=== PATIENT | female | born 1950 | race Caucasian/White ===

== ENCOUNTER 2017-03-16 20:50 | Inpatient (IN) | payer MEDICARE, OTHER ==
[~2017-03-16] VITALS: Ht 170.2 cm; Wt 96.6 kg
[2017-03-16] MEDS ORDERED: ONDANSETRON 2MG/ML, 2ML ONE (21:55)
[2017-03-16 21:58] LABS: MICROSCOPIC AUTO
[2017-03-16 22:00] LABS: CULTURE INDICATED? YES
[2017-03-16] MEDS ORDERED: SODIUM CHLORIDE 0.9% 1,000ML IVBOLUS ONE (22:00)
[2017-03-16] MEDS ORDERED: morphine SULFATE 10 MG/ML, 1ML IVPush ONE (22:00)
[2017-03-16] MEDS ORDERED: ONDANSETRON 2MG/ML, 2ML IVPush ONE (22:00)
[2017-03-16] MEDS ORDERED: CEFTRIAXONE PMX 1GM/50ML 50 ML IV ONE (22:30)
[2017-03-16 22:40] LABS: BASOPHILS # (AUTO) 0.01 x10^3/uL (0-0.1); BASOPHILS % (AUTO) 0 % (0-1); EOSINOPHILS # (AUTO) 0.02 x10^3/uL (0-0.4); EOSINOPHILS % (AUTO) 0 % (1-7); LYMPHOCYTES # (AUTO) 0.24 x10^3/uL (1-3.4); LYMPHOCYTES % (AUTO) 2 % (22-44); MD NO; MEAN CORPUSCULAR HEMOGLOBIN 30.5 pg (27.0-34.8); MEAN CORPUSCULAR HGB CONC 33.3 g/dL (32.4-35.8); MEAN CORPUSCULAR VOLUME 91.8 fL (80-100); MEAN PLATELET VOLUME 7.5 fL (7.4-10.4); MONOCYTES # (AUTO) 0.51 x10^3/uL (0.2-0.8); MONOCYTES % (AUTO) 4 % (2-9); NEUTROPHILS # (AUTO) 10.79 x10^3/uL (1.8-6.8); NEUTROPHILS % (AUTO) 93 % (42-75); PLATELET COUNT 193 x10^3/uL (130-400); RED BLOOD COUNT 3.79 x10^6/uL (3.82-5.3)
[2017-03-16 22:53] LABS: ALANINE AMINOTRANSFERASE 85 U/L (12-78); ALBUMIN 2.9 g/dL (3.4-5.0); ANION GAP 10 mmol/L (5-15); CALCIUM 8.6 mg/dL (8.5-10.1); CHLORIDE 112 mmol/L (98-107); CREATININE 1.01 mg/dL (0.55-1.02)
[2017-03-16 22:55] LABS: ALKALINE PHOSPHATASE 199 U/L (45-117); BILIRUBIN,TOTAL 0.7 mg/dL (0.2-1.0); TOTAL PROTEIN 6.5 g/dL (6.4-8.2)
[2017-03-17] MEDS ORDERED: TACR1CAP4 PO (00:29)
[2017-03-17] MEDS ORDERED: PHOS250T3 PO (00:29)
[2017-03-17] MEDS ORDERED: MULTIVITAMIN (00:29)
[2017-03-17] MEDS ORDERED: MYCO250C4 PO (00:29)
[2017-03-17] MEDS ORDERED: ASPI-496 PO (00:29)
[2017-03-17] MEDS ORDERED: LEVO125T5 PO (00:29)
[2017-03-17] MEDS ORDERED: CINA60TA PO (00:29)
[2017-03-17] MEDS ORDERED: ATOR10TA9 PO (00:29)
[2017-03-17] MEDS ORDERED: PRED10TA14 PO (00:29)
[2017-03-17] MEDS ORDERED: AMLO5TAB2 PO (00:29)
[2017-03-17] MEDS ORDERED: HYDROcodone/APAP 5/325 TABLET PO PRN (01:00)
[2017-03-17] MEDS ORDERED: ONDANSETRON 2MG/ML, 2ML IVPush PRN (01:00)
[2017-03-17] MEDS ORDERED: DOCUSATE 100 MG CAPSULE PO PRN (01:00)
[2017-03-17] MEDS: ENOXAPARIN 40 MG/0.4 ML SQ SCH (03:04)
[2017-03-17] MEDS: SODIUM CHLORIDE 0.9% 1,000 ML IV SCH ×3 (03:04→21:28)
[2017-03-17 06:51] VITALS: BP 126/79
[2017-03-17 12:17] VITALS: BP 135/79
[2017-03-17] MEDS: LEVOTHYROXINE 125 MCG TABLET PO SCH (12:29)
[2017-03-17] MEDS: CINACALCET 30 MG TABLET PO SCH (12:29)
[2017-03-17] MEDS: NEUTRA PHOS K 250 MG TABLET PO SCH ×2 (12:29→21:28)
[2017-03-17] MEDS: TACROLIMUS 1 MG CAPSULE PO SCH ×2 (12:29→21:33)
[2017-03-17] MEDS ORDERED: CEFTRIAXONE 1,000 MG in DEXTROSE 5% 50 ML IV ONE (14:00)
[2017-03-17] MEDS ORDERED: CEFTRIAXONE PMX 1GM/50ML 50 ML IV ONE (14:00)
[2017-03-17 18:29] VITALS: BP 153/87
[2017-03-17] MEDS ORDERED: PROMETHAZINE 25 MG/ML, 1ML IM PRN (20:00)
[2017-03-17] MEDS: ATORVASTATIN 10 MG TABLET PO SCH (21:27)
[2017-03-17 22:16] LABS: RAPID INFLUENZA A Negative (Negative); RAPID INFLUENZA B Negative (Negative)
[2017-03-18] MEDS ORDERED: CEFTRIAXONE PMX 1GM/50ML 50 ML IV SCH
[2017-03-18] MEDS: ENOXAPARIN 40 MG/0.4 ML SQ SCH (01:00)
[2017-03-18] MEDS: CEFTRIAXONE PMX 2GM/50ML 50 ML IV SCH (01:08)
[2017-03-18 04:23] VITALS: BP 123/71
[2017-03-18 05:06] LABS: CHLORIDE 117 mmol/L (98-107)
[2017-03-18] MEDS: SODIUM CHLORIDE 0.9% 1,000 ML IV SCH (05:08)
[2017-03-18 05:13] LABS: ALANINE AMINOTRANSFERASE 56 U/L (12-78); ALBUMIN 2.5 g/dL (3.4-5.0); ALKALINE PHOSPHATASE 184 U/L (45-117); ANION GAP 9 mmol/L (5-15); BILIRUBIN,TOTAL 0.6 mg/dL (0.2-1.0); CALCIUM 8.7 mg/dL (8.5-10.1); CREATININE 0.77 mg/dL (0.55-1.02); TOTAL PROTEIN 5.9 g/dL (6.4-8.2)
[2017-03-18 05:29] LABS: BASOPHILS # (AUTO) 0.03 x10^3/uL (0-0.1); BASOPHILS % (AUTO) 0 % (0-1); EOSINOPHILS # (AUTO) 0.05 x10^3/uL (0-0.4); EOSINOPHILS % (AUTO) 1 % (1-7); LYMPHOCYTES % (AUTO) 7 % (22-44); MD NO; MEAN CORPUSCULAR HEMOGLOBIN 30.6 pg (27.0-34.8); MEAN CORPUSCULAR HGB CONC 33.1 g/dL (32.4-35.8); MEAN CORPUSCULAR VOLUME 92.4 fL (80-100); MEAN PLATELET VOLUME 8.1 fL (7.4-10.4); MONOCYTES # (AUTO) 0.66 x10^3/uL (0.2-0.8); MONOCYTES % (AUTO) 9 % (2-9); NEUTROPHILS # (AUTO) 6.38 x10^3/uL (1.8-6.8); NEUTROPHILS % (AUTO) 84 % (42-75); PLATELET COUNT 191 x10^3/uL (130-400); RED BLOOD COUNT 3.58 x10^6/uL (3.82-5.3); RED CELL DISTRIBUTION WIDTH 13.8 % (9.6-15.2)
[2017-03-18 08:00] VITALS: BP 149/87
[2017-03-18] MEDS ORDERED: ASPIRIN 81 MG TABLET EC PO SCH (09:00)
[2017-03-18] MEDS: CINACALCET 30 MG TABLET PO SCH ×2 (09:00→17:53)
[2017-03-18] MEDS ORDERED: AMLODIPINE 5 MG TABLET PO SCH ×2 (09:00→21:00)
[2017-03-18] MEDS: NEUTRA PHOS K 250 MG TABLET PO SCH (09:07)
[2017-03-18] MEDS: LEVOTHYROXINE 125 MCG TABLET PO SCH (09:08)
[2017-03-18] MEDS: D5%-0.45NACL+KCL 20MEQ 1,000 ML IV SCH (10:00)
[2017-03-18] MEDS ORDERED: ACETAMINOPHEN 325 MG TABLET PO PRN (10:30)
[2017-03-18] MEDS: TACROLIMUS 1 MG CAPSULE PO SCH (11:30)
[2017-03-18 12:29] VITALS: BP 136/81
[2017-03-18] MEDS: ATORVASTATIN 10 MG TABLET PO SCH (21:00)
[2017-03-18 21:23] VITALS: BP 172/84
[2017-03-18] MEDS: TACROLIMUS 0.5 MG CAPSULE PO SCH (21:45)
[2017-03-19 01:18] VITALS: BP 154/73
[2017-03-19] MEDS: ENOXAPARIN 40 MG/0.4 ML SQ SCH (02:29)
[2017-03-19] MEDS: CEFTRIAXONE PMX 2GM/50ML 50 ML IV SCH (02:29)
[2017-03-19 04:58] LABS: BASOPHILS # (AUTO) 0.03 x10^3/uL (0-0.1); BASOPHILS % (AUTO) 1 % (0-1); EOSINOPHILS # (AUTO) 0.07 x10^3/uL (0-0.4); EOSINOPHILS % (AUTO) 1 % (1-7); LYMPHOCYTES % (AUTO) 11 % (22-44); MD NO; MEAN CORPUSCULAR HEMOGLOBIN 30.2 pg (27.0-34.8); MEAN CORPUSCULAR HGB CONC 32.8 g/dL (32.4-35.8); MEAN CORPUSCULAR VOLUME 92.1 fL (80-100); MEAN PLATELET VOLUME 7.7 fL (7.4-10.4); MONOCYTES # (AUTO) 0.66 x10^3/uL (0.2-0.8); MONOCYTES % (AUTO) 10 % (2-9); NEUTROPHILS # (AUTO) 5.04 x10^3/uL (1.8-6.8); NEUTROPHILS % (AUTO) 78 % (42-75); PLATELET COUNT 217 x10^3/uL (130-400); RED BLOOD COUNT 3.65 x10^6/uL (3.82-5.3)
[2017-03-19 05:08] LABS: ANION GAP 7 mmol/L (5-15); CALCIUM 8.7 mg/dL (8.5-10.1); CHLORIDE 116 mmol/L (98-107); CREATININE 0.77 mg/dL (0.55-1.02)
[2017-03-19] MEDS: LEVOTHYROXINE 125 MCG TABLET PO SCH (06:42)
[2017-03-19] MEDS: TACROLIMUS 0.5 MG CAPSULE PO SCH (06:43)
[2017-03-19] MEDS: D5%-0.45NACL+KCL 20MEQ 1,000 ML IV SCH (06:45)
[2017-03-19 07:31] VITALS: BP 164/84
[2017-03-19] MEDS ORDERED: AMLODIPINE 5 MG TABLET PO SCH ×2 (09:00→21:00)
[2017-03-19] MEDS ORDERED: TACROLIMUS 0.5 MG CAPSULE PO SCH ×2 (09:00→21:00)
[2017-03-19] MEDS: NEUTRA PHOS K 250 MG TABLET PO SCH ×2 (09:49→21:13)
[2017-03-19] MEDS: MULTIVITAMIN 1 TABLET PO SCH (09:49)
[2017-03-19 13:12] VITALS: BP 165/92
[2017-03-19] MEDS: CINACALCET 30 MG TABLET PO SCH (17:22)
[2017-03-19 19:42] VITALS: BP 139/97
[2017-03-19] MEDS: ATORVASTATIN 10 MG TABLET PO SCH (21:00)
[2017-03-20 02:05] VITALS: BP 148/84
[2017-03-20] MEDS: ENOXAPARIN 40 MG/0.4 ML SQ SCH (04:01)
[2017-03-20] MEDS: CEFTRIAXONE PMX 2GM/50ML 50 ML IV SCH (04:01)
[2017-03-20 05:42] LABS: CHLORIDE 114 mmol/L (98-107)
[2017-03-20 05:46] LABS: BASOPHILS # (AUTO) 0.03 x10^3/uL (0-0.1); BASOPHILS % (AUTO) 1 % (0-1); EOSINOPHILS % (AUTO) 2 % (1-7); LYMPHOCYTES # (AUTO) 0.68 x10^3/uL (1-3.4); LYMPHOCYTES % (AUTO) 14 % (22-44); MD NO; MEAN CORPUSCULAR HEMOGLOBIN 29.8 pg (27.0-34.8); MEAN CORPUSCULAR HGB CONC 32.5 g/dL (32.4-35.8); MEAN CORPUSCULAR VOLUME 91.8 fL (80-100); MEAN PLATELET VOLUME 7.8 fL (7.4-10.4); MONOCYTES # (AUTO) 0.54 x10^3/uL (0.2-0.8); MONOCYTES % (AUTO) 11 % (2-9); NEUTROPHILS # (AUTO) 3.54 x10^3/uL (1.8-6.8); NEUTROPHILS % (AUTO) 72 % (42-75); PLATELET COUNT 214 x10^3/uL (130-400); RED BLOOD COUNT 4.03 x10^6/uL (3.82-5.3); RED CELL DISTRIBUTION WIDTH 13.9 % (9.6-15.2)
[2017-03-20 05:49] LABS: ALANINE AMINOTRANSFERASE 42 U/L (12-78); ALBUMIN 2.8 g/dL (3.4-5.0); ALKALINE PHOSPHATASE 192 U/L (45-117); ANION GAP 7 mmol/L (5-15); BILIRUBIN,TOTAL 0.2 mg/dL (0.2-1.0); CALCIUM 8.4 mg/dL (8.5-10.1); CREATININE 0.83 mg/dL (0.55-1.02); TOTAL PROTEIN 6.3 g/dL (6.4-8.2)
[2017-03-20] MEDS: LEVOTHYROXINE 125 MCG TABLET PO SCH (06:04)
[2017-03-20 07:37] VITALS: BP 147/87
[2017-03-20] MEDS: NEUTRA PHOS K 250 MG TABLET PO SCH (08:15)
[2017-03-20] MEDS: MULTIVITAMIN 1 TABLET PO SCH (08:15)
[2017-03-20] MEDS ORDERED: ASPIRIN 81 MG TABLET EC PO SCH (09:00)
[2017-03-20] MEDS ORDERED: TACROLIMUS 0.5 MG CAPSULE PO SCH (09:00)
[2017-03-20] MEDS: D5%-0.45NACL+KCL 20MEQ 1,000 ML IV SCH (09:00)
[2017-03-20] MEDS ORDERED: CEFT2FRO2 IV (13:28)
== END 2017-03-20 15:07 | disposition home or self-care (01) | DRG 699 ==
LOC: ED 23:59 → EDIP 03-17 00:22 → SUATTDRO 03-17 00:46 → 4WST 03-17 02:28 → DCLOUNGE 03-20 14:45
PROVIDERS: ADMIT Internal Medicine; ATTEND Internal Medicine
PROC: 02HV33Z Insertion of Infusion Device into Superior Vena Cava, Percutaneous Approach (ICD-10-PCS; principal; 2017-03-20)
PROC: B548ZZA Ultrasonography of Superior Vena Cava, Guidance (ICD-10-PCS; 2017-03-20)
DX: T86.13 Kidney transplant infection (principal); E44.0 Moderate protein-calorie malnutrition; R78.81 Bacteremia; Q61.3 Polycystic kidney, unspecified; I11.9 Hypertensive heart disease without heart failure; B96.20 Unspecified Escherichia coli [E. coli] as the cause of diseases classified elsewhere; E03.9 Hypothyroidism, unspecified; E87.6 Hypokalemia; Z66 Do not resuscitate; Z90.710 Acquired absence of both cervix and uterus; Y83.0 Surgical operation with transplant of whole organ as the cause of abnormal reaction of the patient, or of later complication, without mention of misadventure at the time of the procedure; Y92.89 Other specified places as the place of occurrence of the external cause; Z68.33 Body mass index [BMI] 33.0-33.9, adult
CPT/HCPCS: 36415; 36570; 71045; 74176; 76937; 77001; 80048; 80053; 81001; 83605; 83690; 83735; 85025; 87040; 87077; 87086; 87186; 87400; 96361; 96365; 96366; J0696; J1650; J2405; J2550; J7507; J7517; C1751; J3480; J7030; J7512